=== PATIENT | male | born 1995 | race Caucasian/White ===

== ENCOUNTER 2024-02-23 00:55 | Observation (INO) ==
[2024-02-23] MEDS: Lactated Ringers 1000 ml BAG 1,000 ML IV SCH (00:55)
[2024-02-23] MEDS ORDERED: Ondansetron 4 mg VIAL 2 MG/ML 2 ml VIAL IV PRN ×2 (01:01→04:42)
[2024-02-23] MEDS ORDERED: fentaNYL 100 mcg/2 ml 50 MCG/ML VIAL ONE ×2 (01:11→02:57)
[2024-02-23] MEDS ORDERED: Midazolam 2 mg/2 ml VIAL 1 mg/ml 2 ml VIAL (2 mg) ONE (01:12)
[2024-02-23] MEDS ORDERED: Rocuronium 50 mg VIAL 10 mg/ml 5 ml VIAL (50 mg) ONE (01:12)
[2024-02-23] MEDS ORDERED: Lidocaine 2% PF 5 ML VIAL ONE (01:12)
[2024-02-23] MEDS ORDERED: Propofol 10 MG/ML 20 ML BTL ONE (01:12)
[2024-02-23] MEDS: HYDROmorphone 1 MG/1 ML SYRINGE IV SLOW PU PRN (01:20)
[2024-02-23 01:33] LABS: Rapid COVID-19 Molecular Undetected (Undetected)
[2024-02-23] MEDS ORDERED: Bupivacaine 0.25% EPI 200,000 30 ML SDV ONE (02:03)
[2024-02-23] MEDS ORDERED: Dexamethasone IV 4 MG/ML VIAL 1 ml VIAL ONE (02:57)
[2024-02-23] MEDS ORDERED: Ondansetron 4 mg VIAL 2 MG/ML 2 ml VIAL ONE (02:57)
[2024-02-23] MEDS ORDERED: Acetaminophen IV 1 GM/100ML 1,000 MG/100 ML BAG IV ONE (03:02)
[2024-02-23] MEDS ORDERED: Naloxone 0.4 mg VIAL 0.4 mg/ml 1 ml VIAL IV PRN (04:42)
[2024-02-23] MEDS ORDERED: fentaNYL 100 mcg/2 ml 50 MCG/ML VIAL IV PRN (04:42)
[2024-02-23] MEDS: NS 0.9% 1,000 ML IV SCH (06:39)
[2024-02-23] MEDS: Piperacillin/Tazobac 3.375 BAG 3.375 GM/100 ML BAG IV SCH (06:52)
[2024-02-23] MEDS: Enoxaparin 40 MG/0.4 ML SYR SUBCUT SCH (15:17)
[2024-02-25 06:21] LABS: ABS Eosinophils 0.1 10^3/uL (0.0-0.5); ABS Neutrophils 12.1 10^3/uL (1.5-7.6); ABS Nucleated RBC 0.01 10^3/ul; Eosinophil % 0.7 %; Hematocrit 36.7 % (38-53); Hemoglobin 12.5 g/dL (13.2-16.3); Lymphocyte % 6.8 %; Mean Corpuscular Hemoglobin 29.1 pg (27-33); Mean Corpuscular Hgb Conc 34.1 g/dL (31-36); Mean Corpuscular Volume 85.2 fL (80-97); Mean Platelet Volume 7.7 fL (7.5-11.2); Platelet Count 260 10^3/uL (150-450); Red Blood Count 4.31 10^6/uL (4.06-5.63); Red Cell Distribution Width 13.3 % (12-17); White Blood Count 14.2 10^3/uL (3.6-10.2)
[2024-02-25 14:30] VITALS: BP 139/65
== END 2024-02-25 15:15 | disposition home or self-care (01) ==
LOC: SSU 00:55 → INTOOBSV 01:02
PROVIDERS: ADMIT Surgery; ATTEND Surgery